=== PATIENT | male | born 1995 ===

== ENCOUNTER → 2018-01-20 21:09 | Outpatient (REF) | payer OTHER, MEDICAID, SELFPAY ==
[2018-01-24 13:48] LABS: QuantiFERON TB NEGATIVE (Negative)
== END ==
LOC: LAB 21:09
PROVIDERS: Visit Provider General Practice
DX: Z11.3 Encounter for screening for infections with a predominantly sexual mode of transmission (principal)
CPT/HCPCS: 86480

== ENCOUNTER → 2018-01-21 18:48 | Outpatient (REF) | payer OTHER, MEDICAID, SELFPAY | LOC: LAB 18:48 | PROVIDERS: Visit Provider Family Medicine | DX: Z11.3 Encounter for screening for infections with a predominantly sexual mode of transmission (principal) ==